=== PATIENT | female | born 1990 | race African-American/Black ===

== ENCOUNTER 2018-08-16 17:05 | Emergency (ER) | payer OTHER, SELFPAY ==
[2018-08-16 18:16] LABS: Urine Blood 2+ (NEG); Urine Glucose NEGATIVE (NEG); Urine Protein 2+ (NEG)
--- NOTE | 2018-08-16 19:33 | ER ---
Nurse's Notes [facility] Name: Katya Valverde Age: 28 yrs Sex: Female : 1990 Arrival Date: 08/16/2018 Time: 17:08 Bed Treatment Private MD: None, None Diagnosis: Acute upper respiratory infection, unspecified Presentation: 08/16 17:13 Presenting complaint: Patient states: Flu like symptoms since Sunday. T max 100.7. aj Transition of care: patient was not received from another setting of care. Onset of symptoms was August 14, 2018. Risk Assessment: Do you want to hurt yourself or someone else? Patient reports no desire to harm self or others. Initial Sepsis Screen: Does the patient meet any 2 criteria? No. Patient's initial sepsis screen is negative. Does the patient have a suspected source of infection? No. Patient's initial sepsis screen is negative. Care prior to arrival: None. 17:13 Method Of Arrival: Ambulatory aj 17:13 Acuity: CHRISS 4 aj Triage Assessment: 17:14 General: Appears in no apparent distress. comfortable, Behavior is calm, cooperative, aj appropriate for age. Pain: Denies pain. EENT: Reports nasal congestion nasal discharge. Neuro: Level of Consciousness is awake, alert, obeys commands, Oriented to person, place, time, situation, Appropriate for age. Respiratory: Reports shortness of breath cough that is Airway is patent Respiratory effort is even, unlabored, Respiratory pattern is regular, symmetrical. Derm: Skin is intact, is healthy with good turgor, Skin is pink, warm \T\ dry. normal. 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 - Social history:: Smoking status: Patient uses tobacco products, smokes one-half pack cigarettes per day. - Ebola Screening: : Patient negative for fever greater than or equal to 101.5 degrees Fahrenheit, and additional compatible Ebola Virus Disease symptoms Patient denies exposure to infectious person Patient denies travel to an Ebola-affected area in the 21 days before illness onset No symptoms or risks identified at this time. Screenin:03 Abuse screen: Denies threats or abuse. Nutritional screening: No deficits noted. la1 Tuberculosis screening: No symptoms or risk factors identified. Fall Risk None identified. Assessment: 18:03 General: Appears in no apparent distress. Behavior is calm, cooperative. Pain: Denies la1 pain. Neuro: Level of Consciousness is awake, alert, obeys commands, Oriented to person, place, time, situation. Cardiovascular: Capillary refill < 3 seconds Patient's skin is warm and dry. Respiratory: Airway is patent Respiratory effort is even, unlabored, Respiratory pattern is regular, symmetrical, Breath sounds are clear bilaterally. GI: No signs and/or symptoms were reported involving the gastrointestinal system. : No signs and/or symptoms were reported regarding the genitourinary system. 18:50 Reassessment: Patient appears in no apparent distress at this time. Patient and/or ss family updated on plan of care and expected duration. Pain level reassessed. awaiting strep and XRAY. 19:58 Reassessment: Patient and/or family updated on plan of care and expected duration. Pain bb level reassessed. Patient is alert, oriented x 3, equal unlabored respirations, skin warm/dry/pink. pt verbalized understanding of and agrees to plan of care discharge instructions given pt ambulated with steady gait to exit. Vital Signs: 17:28 BP 107 / 68; Pulse 94; Resp 19; Temp 98.3; Pulse Ox 100% on R/A; Weight 58.06 kg; la1 Height 5 ft. 6 in. (167.64 cm); 17:28 Body Mass Index 20.66 (58.06 kg, 167.64 cm) la1 ED Course: 17:08 Patient arrived in ED. mr 17:09 None, None is Private Physician. mr 17:14 Triage completed. aj 17:14 Arm band placed on left wrist. Patient placed in an exam room. aj 17:22 Aubrey Carrasquillo NP is PHCP. pm1 17:22 Leo Avendano MD is Attending Physician. pm1 17:40 Rolando Ford RN is Primary Nurse. la1 18:03 Call light in reach. la1 18:22 Chest Pa And Lat (2 Views) XRAY In Process Unspecified. EDMS 19:59 No provider procedures requiring assistance completed. Patient did not have IV access bb during this emergency room visit. Administered Medications: No medications were administered Outcome: 19:33 Discharge ordered by MD. pm1 19:59 Discharged to home ambulatory. bb 19:59 Condition: stable 19:59 Discharge instructions given to patient, Instructed on discharge instructions, follow up and referral plans. medication usage, Demonstrated understanding of instructions, follow-up care, medications, Prescriptions given X 1. 19:59 Patient left the ED. bb Signatures: Dispatcher [employer] EDMS Sherine Pak, RN Krista Clayton mr FavioGisella RN RN Roseann Ramos RN RN ss Attema, Lee, RN RN la1 Aubrey Carrasquillo, ERIN IMAGE PROCESSING ENGINEER pm1
--- NOTE | 2018-08-16 19:33 | EDPHYS ---
Physician Documentation [facility] Name: Katya Valverde Age: 28 yrs Sex: Female : 1990 Arrival Date: 08/16/2018 Time: 17:08 Bed Treatment Private MD: None, None ED Physician Leo Avendano HPI: 08/16 19:00 This 28 yrs old Black Female presents to ER via Ambulatory with complaints of Flu pm1 Symptoms. 19:00 The patient or guardian reports cough, with no sputum. Onset: The symptoms/episode pm1 began/occurred yesterday. Modifying factors: The symptoms are alleviated by nothing, the symptoms are aggravated by nothing. Associated signs and symptoms: Pertinent positives: fever, sore throat, Pertinent negatives: chest pain, rhinorrhea, shortness of breath. The patient has not experienced similar symptoms in the past. The patient has not recently seen a physician. Patient with multiple co-workers with similar symptoms. Patient reports that one tested positive for the flu.. 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 - Social history:: Smoking status: Patient uses tobacco products, smokes one-half pack cigarettes per day. - Ebola Screening: : Patient negative for fever greater than or equal to 101.5 degrees Fahrenheit, and additional compatible Ebola Virus Disease symptoms Patient denies exposure to infectious person Patient denies travel to an Ebola-affected area in the 21 days before illness onset No symptoms or risks identified at this time. ROS: 19:00 Eyes: Negative for injury, pain, redness, and discharge, ENT: Negative for injury, pm1 pain, and discharge. 19:00 Neck: Negative for injury, pain, and swelling, Cardiovascular: Negative for chest pain, palpitations, and edema. 19:00 Abdomen/GI: Negative for abdominal pain, nausea, vomiting, diarrhea, and constipation, Back: Negative for injury and pain, : Negative for injury, bleeding, discharge, and swelling, MS/Extremity: Negative for injury and deformity, Skin: Negative for injury, rash, and discoloration, Neuro: Negative for headache, weakness, numbness, tingling, and seizure. 19:00 Constitutional: Positive for body aches, fever, Negative for poor PO intake, weight loss. 19:00 Respiratory: Positive for cough, Negative for shortness of breath, sputum production, wheezing. Exam: 19:00 Constitutional: This is a well developed, well nourished patient who is awake, alert, pm1 and in no acute distress. Head/Face: Normocephalic, atraumatic. Eyes: Pupils equal round and reactive to light, extra-ocular motions intact. Lids and lashes normal. Conjunctiva and sclera are non-icteric and not injected. Cornea within normal limits. Periorbital areas with no swelling, redness, or edema. ENT: Nares patent. No nasal discharge, no septal abnormalities noted. Tympanic membranes are normal and external auditory canals are clear. Oropharynx with no redness, swelling, or masses, exudates, or evidence of obstruction, uvula midline. Mucous membranes moist. Neck: Trachea midline, no thyromegaly or masses palpated, and no cervical lymphadenopathy. Supple, full range of motion without nuchal rigidity, or vertebral point tenderness. No Meningismus. Chest/axilla: Normal chest wall appearance and motion. Nontender with no deformity. No lesions are appreciated. Cardiovascular: Regular rate and rhythm with a normal S1 and S2. No gallops, murmurs, or rubs. Normal PMI, no JVD. No pulse deficits. Respiratory: Lungs have equal breath sounds bilaterally, clear to auscultation and percussion. No rales, rhonchi or wheezes noted. No increased work of breathing, no retractions or nasal flaring. Abdomen/GI: Soft, non-tender, with normal bowel sounds. No distension or tympany. No guarding or rebound. No evidence of tenderness throughout. Back: No spinal tenderness. No costovertebral tenderness. Full range of motion. Skin: Warm, dry with normal turgor. Normal color with no rashes, no lesions, and no evidence of cellulitis. MS/ Extremity: Pulses equal, no cyanosis. Neurovascular intact. Full, normal range of motion. 19:00 Neuro: Orientation: is normal, Motor: is normal, moves all fours. Vital Signs: 17:28 BP 107 / 68; Pulse 94; Resp 19; Temp 98.3; Pulse Ox 100% on R/A; Weight 58.06 kg; la1 Height 5 ft. 6 in. (167.64 cm); 17:28 Body Mass Index 20.66 (58.06 kg, 167.64 cm) la1 MDM: 17:23 Patient medically screened. pm1 19:25 Data reviewed: vital signs. Data interpreted: Pulse oximetry: on room air is 100 %. pm1 Interpretation: normal. 19:32 Counseling: I had a detailed discussion with the patient and/or guardian regarding: the pm1 historical points, exam findings, and any diagnostic results supporting the discharge/admit diagnosis, lab results, radiology results, the need for outpatient follow up, to return to the emergency department if symptoms worsen or persist or if there are any questions or concerns that arise at home. 08/16 17:23 Order name: Flu; Complete Time: 18:34 pm1 08/16 17:39 Order name: Strep; Complete Time: 19:29 pm1 08/16 17:39 Order name: Chest Pa And Lat (2 Views) XRAY; Complete Time: 20:21 pm1 08/16 18:01 Order name: Urine Dipstick--Ancillary (enter results) eb 08/16 18:01 Order name: Urine --Ancillary (enter results) 08/16 19:27 Order name: Throat Culture [facility] 08/16 17:39 Order name: Urine Dipstick-Ancillary (obtain specimen); Complete Time: 17:54 pm1 08/16 17:39 Order name: Urine Test (obtain specimen); Complete Time: 17:54 pm1 Administered Medications: No medications were administered Disposition: 08/16/18 19:33 Discharged to Home. Impression: Acute upper respiratory infection, unspecified. - Condition is Stable. - Discharge Instructions: Upper Respiratory Infection, Adult. - Prescriptions for Tamiflu 75 mg Oral Capsule - take 1 tablet by ORAL route every 12 hours for 5 days; 10 tablet. - Work release form, Medication Reconciliation Form, Thank You Letter, Antibiotic Education form. - Follow up: Emergency Department; When: As needed; Reason: Worsening of condition. Follow up: Private Physician; When: 2 - 3 days; Reason: Recheck today's complaints, Continuance of care, Re-evaluation by your physician. - Problem is new. - Symptoms have improved. Addendum: 08/19/2018 09:38 Co-signature as Attending Physician, Leo Avendano MD I agree with the assessment and c alvarez plan of care. Signatures: Dispatcher [employer] Sherine Miranda, RN RN Leo Vasquez MD MD cha Ballard, Brenda, RN RN Aubrey Box, DESKTOP OPERATOR DESKTOP OPERATOR pm1 Corrections: (The following items were deleted from the chart) 08/16 19:59 19:33 08/16/2018 19:33 Discharged to Home. Impression: Acute upper respiratory bb infection, unspecified. Condition is Stable. Forms are Medication Reconciliation Form, Thank You Letter, Antibiotic Education, Prescription Opioid Use. Follow up: Emergency Department; When: As needed; Reason: Worsening of condition. Follow up: Private Physician; When: 2 - 3 days; Reason: Recheck today's complaints, Continuance of care, Re-evaluation by your physician. Problem is new. Symptoms have improved. pm1
--- NOTE | 2018-08-16 19:57 | RAD REPORT ---
EXAM DESCRIPTION: RAD - Chest Pa And Lat (2 Views) - 08/16/2018 6:18 pm CLINICAL HISTORY: Cough, flu-like symptoms COMPARISON: None. TECHNIQUE: PA and lateral views of the chest were obtained. FINDINGS: The lungs are clear of a focal infiltrate. No pulmonary edema, failure or volume overload. Heart size is normal and central vasculature is within normal limits. No pleural effusion or pneu mothorax seen. No acute bone finding. Left convex scoliotic curvature noted of the lower thoracic sp ine. No aortic abnormality. IMPRESSION: No acute cardiopulmonary process.
[2018-08-16 21:46] VITALS: BP 107/68; TEMP 98.3; O2SAT 100
== END 2018-08-16 19:59 | disposition home or self-care (01) ==
LOC: ER 17:05
DX: J06.9 Acute upper respiratory infection, unspecified (principal); F17.210 Nicotine dependence, cigarettes, uncomplicated; F32.9 Major depressive disorder, single episode, unspecified; Z21 Asymptomatic human immunodeficiency virus [HIV] infection status
CPT/HCPCS: 71046; 81003; 81025; 87070; 87081; 87804; 99283